=== PATIENT | male | born 1950 | race Caucasian/White ===

== ENCOUNTER → 2016-07-15 | Day surgery (SDC) | payer OTHER ==
[2016-07-15] VITALS (7 sets, daily range): BP systolic 100–117; BP diastolic 66–79
[~2016-07-15] VITALS: Ht 198.1 cm; Wt 95.3 kg
[~2016-07-15] MED LIST: Akten 3.5% 1ml Btl ONE; BSS 15ml BTL ONE; BSS 500ml btl ONE; Dexamethasone 4mg/ml vial ONE; Diclofenac Sod 0.1% Op Soln ONE; EPINEPHrine 1mg/1ml Amp ONE; EXCEDRIN MIGRA1 EAC1 PO; Gatifloxacin Opth Solution 0.5% ONE; LORAZEPAM0.5 MG ORAL; LR 1000ml ONE; Lidocaine 1% MPF 10mg/ml 5ml ONE; Midazolam 2mg/2ml Inj ONE; NS Irrig 1000ml ONE; PROSCAR5 MG ORAL; Phenylephrine 2.5% Op Soln ONE; Povidone-Iodine 5% opth solution ONE; Sodium Hyaluronate 14 mg/ml 0.85ml ONE; Sterile Water Irrig 1000ml IRRIG ONE; TAMSULOSIN HCL0.4 MG ORAL; Tobradex Opth Susp 2.5ml ONE; Tropicamide 1% Opth Soln ONE; fentaNYL 100 mcg/2 mL IV ONE
--- NOTE | 2016-07-15 08:47 | Pre-Procedure Note/Attestation ---
Pre-Procedure Note/Attestation Complete Prior to Procedure Planned Procedure: left Procedure Narrative: cataract extraction with implant left eye Indications for Procedure Pre-Operative Diagnosis: cataract left eye Attestation I attest that I discussed the nature of the procedure; its benefits; risks and complications; and alternatives (and the risks and benefits of such alternatives ), prior to the procedure, with the patient (or the patient's legal accounts payable representative). I attest that, if there was a reasonable possibility of needing a blood transfusion, the patient (or the patient's legal accounts payable representative) was given the [facility] standardized written summary, pursuant to the Brandon Dawn Blood Safety Act ([place] Health and Safety Code # 1645, as amended). I attest that I re-evaluated the patient just prior to the surgery and that there has been no change in the patient's H&P, except as documented below: ENO OLIVA Jul 15, 2016 08:47
[2016-07-15] MEDS: Tobradex Opth Susp 2.5ml LEFT EYE SCH ×3 (09:30→09:47)
[2016-07-15] MEDS: Phenylephrine 2.5% Op Soln LEFT EYE SCH ×3 (09:30→09:48)
[2016-07-15] MEDS: Diclofenac Sod 0.1% Op Soln LEFT EYE SCH ×3 (09:30→09:47)
[2016-07-15] MEDS: Tropicamide 1% Opth Soln LEFT EYE SCH ×3 (09:30→09:48)
[2016-07-15] MEDS: Akten 3.5% 1ml Btl LEFT EYE SCH ×3 (09:30→09:47)
[2016-07-15] MEDS: Gatifloxacin Opth Solution 0.5% LEFT EYE SCH ×3 (09:42→09:54)
--- NOTE | 2016-07-15 12:36 | Anethesia Preoperative Eval ---
Anesthesia Pre-op PMH/ROS General Date of Evaluation: Jul 15, 2016 Time of Evaluation: 12:15 Anesthesiologist: jos ASA Score: ASA 2 Mallampati Score Class I : Soft palate, uvula, fauces, pillars visible Class II: Soft palate, uvula, fauces visible Class III: Soft palate, base of uvula visible Class IV: Only hard plate visible Mallampati Classification: Class II Surgeon: anita Diagnosis: cataract Surgical Procedure: left eye cataract extraction Anesthesia History: none Family History: no anesthesia problems Allergies: Coded Allergies: No Known Allergies (Unverified , 12/18/15) Medications: see eMAR Past Medical History Cardiovascular: Denies: CAD, HTN, [place], arrhythmia, other, valve dz Pulmonary: Denies: COPD, MICHELLE, asthma, other Gastrointestinal/Genitourinary: Denies: CRI, ESRD, GERD, other Neurologic/Psychiatric: Reports: depression/anxiety Endocrine: Denies: DM, hypothyroidism, other, steroids HEENT: Reports: cataract (L) Hematology/Immune: Denies: DVT, anemia, bleeding disorder, other PMH Narrative: hx migraine Anesthesia Pre-op Phys. Exam Physician Exam Last Vital Signs Date Time Temp Pulse Resp B/P Pulse Ox O2 Delivery O2 Flow Rate FiO2 07/15/16 09:42 98.0 61 17 112/79 100 Room Air Constitutional: NAD Neurologic: CN 2-12 intact Cardiovascular: RRR Respiratory: CTA Gastrointestinal: S/NT/ND Airway Exam Mallampati Classification 2 Mallampati Score: Class II MO: full ROM: full Dentures: no lower, no upper Anesthesia Pre-op A/P Studies Pre-op Studies: EKG - sr Risk Assessment & Plan Plan: mac Status Change Before Surgery: No Pre-Antibiotics Drug: none AMERICO RODRIGUEZ CRNA Jul 15, 2016 12:36
--- NOTE | 2016-07-15 12:49 | Brief Operative Note ---
Immediate Post Operative Note Operative Note Pre-op Diagnosis: cataract left eye Procedure: phacoemulsification of cataract with implant left eye Post-op Diagnosis: same as pre-op Surgeon: neo howard Chair Car Driver: none Anesthesiologist: eligio arguello Anesthesia: MAC Specimen: none Complications: none Condition: stable Estimated Blood Loss: none Drains: none Implant(s) used?: Yes NEO HOWARD Jul 15, 2016 12:49
--- NOTE | 2016-07-15 12:55 | Immediate Post-Op Evaluation ---
Immediate Post-Op Evalulation Immediate Post-Op Evalulation Procedure: cataract extraction left eye Date of Evaluation: Jul 15, 2016 Time of Evaluation: 12:54 IV Fluids: 500 Blood Pressure Systolic: 117 Blood Pressure Diastolic: 67 Pulse Rate: 70 Respiratory Rate: 14 O2 Sat by Pulse Oximetry: 99 Temperature (Fahrenheit): 97.8 Patient Status: awake, patent Hydration Status: adequate Drug: none TARRILLION,[employer] [employer] MANAGER Jul 15, 2016 12:55
--- NOTE | 2016-07-15 12:56 | 48 Hour Post Anesthesia Eval ---
Post Anesthesia Evaluation Procedure: cataract extraction left eye Date of Evaluation: Jul 15, 2016 Time of Evaluation: 13:00 Blood Pressure Systolic: 118 0: 54 Pulse Rate: 74 O2 Sat by Pulse Oximetry: 99 Airway: patent Hydration Status: adequate Mental Status/LOC: patient returned to baseline Post-Anesthesia Complications: none Follow-up care needed: N/A AMERICO RODRIGUEZ CRNA Jul 15, 2016 12:56
--- NOTE | 2016-07-15 20:18 | Operative Note - Dictated ---
DATE OF OPERATION: 07/15/2016 PREOPERATIVE DIAGNOSIS: Cataract, left eye. POSTOPERATIVE DIAGNOSIS: Cataract, left eye. PROCEDURE: Phacoemulsification cataract left eye with placement of posterior chamber intraocular lens. SURGEON: Agus Elam M.D. DIESEL SERVICE APPRENTICE: None. ANESTHESIA: MAC/topical. ANESTHESIOLOGIST: Nissa Peña C.R.N.A. INDICATION FOR PROCEDURE: Poor vision left eye. DESCRIPTION OF FINDINGS: Nuclear sclerotic, posterior subcapsular, and cortical cataract left eye. DESCRIPTION OF PROCEDURE: The patient received a topical anesthetic block consisting of 3.5% Akten eye drops. The eye was then prepped and draped in usual manner. A lid speculum was placed and a Zeiss microscope was positioned. A temporal corneal groove was made with the yamilka blade. A SuperSharp blade made a stab incision at the 6 o'clock position. A 0.1 mL of 1% nonpreserved anterior camera lidocaine was injected. Healon was instilled into the anterior chamber and a 2.5/2.9 mm trapezoidal yamilka blade was used to complete the temporal corneal wound. A cystotome was used to create an anterior capsular flap. Utrata forceps were used to complete the capsulorrhexis. BSS on a cannula was used to hydrodissect the nucleus. The lens nucleus was phacoemulsified in a phaco-fracture technique. Remaining cortical material was removed with the I/A and the posterior capsule polished with the I/A on Cap vac. Healon was instilled in the capsular bag and anterior chamber, and an Walker foldable one-piece posterior intraocular lens, model ZCB00, power 16.0 diopter, serial #[id number] was placed in the injector. The lens put in the capsular bag. The I/A tip was used to remove the Healon and position the lens. The wound edge was hydrated with BSS and a blunt-tipped cannula. The wound was checked and found to be watertight. The lid speculum was removed and a drop of TobraDex and Zymaxid was placed. A clear plastic shield was taped over the eye. The patient tolerated the procedure well and left the operating room in good condition. Agus Elam M.D. ([facility]) DR: Ashlie JOB#: [id number] CC: Eder Yoshi Javier
== END | disposition home or self-care (01) ==
LOC: SUR 08:31
DX: H25.812 Combined forms of age-related cataract, left eye (principal); N40.1 Benign prostatic hyperplasia with lower urinary tract symptoms; I44.0 Atrioventricular block, first degree; F41.9 Anxiety disorder, unspecified; F32.9 Major depressive disorder, single episode, unspecified; G43.909 Migraine, unspecified, not intractable, without status migrainosus; Z85.828 Personal history of other malignant neoplasm of skin; Z86.010 Personal history of colon polyps; Z79.1 Long term (current) use of non-steroidal anti-inflammatories (NSAID); Z79.899 Other long term (current) drug therapy; Z88.8 Allergy status to other drugs, medicaments and biological substances
CPT/HCPCS: 66984; J0171; J1100; J2250; J3010; J7120; V2632; 94003; 94150